=== PATIENT | female | born 1980 | race Caucasian/White ===

== ENCOUNTER 2019-05-22 00:56 | Emergency (ER) | payer MEDICARE, MEDICAID ==
[~2019-05-22] VITALS: Ht 160 cm; Wt 95.0 kg
[~2019-05-22 00:56] MED LIST: AMOX500T2 PO; NO HOME MEDS
[2019-05-22] MEDS ORDERED: ketorolac trometh inj. 60 MG/2 ML VIAL IM ONE (02:25)
[2019-05-22 03:07] LABS: CLARITY,URINE CLEAR (Clear); COLOR,URINE YELLOW (Yellow); GLUCOSE, URINE NEGATIVE (Neg); KETONES,URINE NEGATIVE (Neg); LEUKOCYTE ESTERASE ,URINE NEGATIVE (Neg); NITRITES, URINE NEGATIVE (Neg); OCCULT BLOOD,URINE NEGATIVE (Neg); PH,URINE 5.5 (4.8-8.0); PROTEIN,URINE NEGATIVE (Neg); UROBILINOGEN,URINE 0.2 E.U/dL (0.2-1.0)
[2019-05-22 03:11] LABS: UA COLLECTION TYPE CLN CATCH MIDSTREAM
[2019-05-22] MEDS ORDERED: normal saline 1000ML IV soln IVB ONE (03:35)
[2019-05-22] MEDS ORDERED: CYCL-1 PO (03:48)
[2019-05-22] MEDS ORDERED: NAPR-56 PO (03:48)
[2019-05-22] MEDS ORDERED: HYDR-4383 PO (03:48)
[2019-05-22] MEDS ORDERED: HYDROcodone/acetaminophen 10/325mg tab PO ONE (03:50)
[2019-05-22] MEDS ORDERED: cyclobenzaprine 10mg tablet PO ONE (03:50)
[2019-05-22 04:14] VITALS: BP 115/53
== END 2019-05-22 04:17 | disposition home or self-care (01) ==
LOC: ER 00:56
DX: M51.87 Other intervertebral disc disorders, lumbosacral region (principal); M06.9 Rheumatoid arthritis, unspecified; F41.9 Anxiety disorder, unspecified; F17.200 Nicotine dependence, unspecified, uncomplicated; Z56.0 Unemployment, unspecified; Z79.2 Long term (current) use of antibiotics; Z79.899 Other long term (current) drug therapy
CPT/HCPCS: 72131; 81003; 96372; 99284; J1885

== ENCOUNTER 2021-02-20 08:39 | Emergency (ER) | payer MEDICARE, MEDICAID ==
[~2021-02-20] VITALS: Ht 160 cm; Wt 90.9 kg
[~2021-02-20 08:39] MED LIST changes: +CYCL-1 PO; +HYDR-4383 PO
[2021-02-20 09:15] VITALS: BP 120/83
[2021-02-20] MEDS ORDERED: AMOX-422 PO (11:39)
[2021-02-20] MEDS ORDERED: PRED20TA PO (11:39)
[2021-02-20] MEDS ORDERED: ALBU6.7H9 INH (11:39)
== END 2021-02-20 11:45 | disposition home or self-care (01) ==
LOC: ER 08:40
DX: J20.9 Acute bronchitis, unspecified (principal); Z20.822 Contact with and (suspected) exposure to COVID-19; M19.90 Unspecified osteoarthritis, unspecified site; M06.9 Rheumatoid arthritis, unspecified; F17.200 Nicotine dependence, unspecified, uncomplicated; Z72.89 Other problems related to lifestyle; Z56.0 Unemployment, unspecified
CPT/HCPCS: 71045; 87635; 99284; C9803

== ENCOUNTER 2022-04-16 20:28 | Emergency (ER) | payer MEDICARE, MEDICAID ==
[~2022-04-16] VITALS: Ht 160 cm; Wt 86.4 kg
[~2022-04-16 20:28] MED LIST changes: +ALBU6.7H14 INH
[2022-04-16 20:45] VITALS: BP 136/80
[2022-04-16 20:47] LABS: BASOPHILS # (AUTO) 0.1 X10'3 (0-0.2); BASOPHILS % (AUTO) 0.9 % (0-1); EOSINOPHILS # (AUTO) 0.1 X10'3 (0-0.9); EOSINOPHILS % (AUTO) 1.2 % (0-6); HEMATOCRIT 48.8 % (35.0-45.0); HEMOGLOBIN 15.6 g/dl (12.0-16.0); LYMPHOCYTES # (AUTO) 2.1 X10'3 (1.1-4.8); LYMPHOCYTES % (AUTO) 22.9 % (21-51); MEAN CORPUSCULAR HEMOGLOBIN 28.2 PG (27.0-31.0); MEAN CORPUSCULAR HGB CONC 32.1 g/dL (33.0-36.5); MEAN CORPUSCULAR VOLUME 88.1 FL (78-98); MEAN PLATELET VOLUME 7.5 FL (7.4-10.4); MONOCYTES # (AUTO) 0.6 X10'3 (0-0.9); NEUTROPHILS # (AUTO) 6.3 X10'3 (1.8-7.7); PLATELET COUNT 227 X10'3 (140-440); RED BLOOD COUNT 5.54 X10'6 (4.20-5.60); RED CELL DISTRIBUTION WIDTH 16.6 % (11.5-14.5); WHITE BLOOD COUNT 9.3 X10'3 (4.5-11.0)
[2022-04-16 21:05] LABS: ALANINE AMINOTRANSFERASE 33 U/L (12-78); ALBUMIN 3.5 G/DL (3.4-5.0); ALBUMIN/GLOBULIN RATIO 0.8 (1.1-1.5); ALKALINE PHOSPHATASE 141 IU/L (46-116); ANION GAP 11 (8-16); ASPARTATE AMINO TRANSFERASE 30 U/L (10-37); BILIRUBIN,TOTAL 1.3 MG/DL (0.1-1.0); BLOOD UREA NITROGEN 13 MG/DL (7-18); CALCIUM 8.9 MG/DL (8.5-10.1); CHLORIDE 102 MMOL/L (99-107); CREATININE 1.08 MG/DL (0.40-0.90); GLUCOSE 95 MG/DL (70-104); MAGNESIUM 2.1 MG/DL (1.5-2.4); POTASSIUM 4.1 MMOL/L (3.5-5.1); SODIUM 136 MMOL/L (135-145); TOTAL CARBON DIOXIDE 23.2 MMOL/L (24-32); TOTAL PROTEIN 7.9 G/DL (6.4-8.2); eGFR 56 ML/MIN
== END 2022-04-17 02:49 | disposition left against medical advice (07) ==
LOC: ER 20:29
DX: R06.02 Shortness of breath (principal); Z53.21 Procedure and treatment not carried out due to patient leaving prior to being seen by health care provider
CPT/HCPCS: 36415; 80053; 83735; 83880; 84484; 85025; 93005

== ENCOUNTER 2022-04-19 16:22 | Emergency (ER) | payer MEDICARE, MEDICAID ==
[~2022-04-19] VITALS: Ht 160 cm; Wt 104.5 kg
--- NOTE | 2022-04-19 16:49 | NUR ---
PATIENT REFUSING EKG AT THIS TIME STATING "... I DID ONE TWO NIGHTS AGO".
[2022-04-19 17:29] LABS: BASOPHILS # (AUTO) 0.1 X10'3 (0-0.2); BASOPHILS % (AUTO) 0.9 % (0-1); EOSINOPHILS # (AUTO) 0.1 X10'3 (0-0.9); EOSINOPHILS % (AUTO) 1.6 % (0-6); HEMATOCRIT 45.7 % (35.0-45.0); HEMOGLOBIN 14.7 g/dl (12.0-16.0); LYMPHOCYTES # (AUTO) 1.9 X10'3 (1.1-4.8); LYMPHOCYTES % (AUTO) 20.9 % (21-51); MEAN CORPUSCULAR HEMOGLOBIN 28.3 PG (27.0-31.0); MEAN CORPUSCULAR HGB CONC 32.2 g/dL (33.0-36.5); MEAN PLATELET VOLUME 7.6 FL (7.4-10.4); MONOCYTES # (AUTO) 0.6 X10'3 (0-0.9); MONOCYTES % (AUTO) 6.2 % (2-12); NEUTROPHILS # (AUTO) 6.3 X10'3 (1.8-7.7); NEUTROPHILS % (AUTO) 70.4 % (42-75); PLATELET COUNT 221 X10'3 (140-440); RED BLOOD COUNT 5.19 X10'6 (4.20-5.60); RED CELL DISTRIBUTION WIDTH 16.6 % (11.5-14.5)
[2022-04-19 17:43] LABS: ALANINE AMINOTRANSFERASE 32 U/L (12-78); ALBUMIN 3.2 G/DL (3.4-5.0); ALBUMIN/GLOBULIN RATIO 0.8 (1.1-1.5); ALKALINE PHOSPHATASE 127 IU/L (46-116); ANION GAP 11 (8-16); ASPARTATE AMINO TRANSFERASE 28 U/L (10-37); BLOOD UREA NITROGEN 18 MG/DL (7-18); BUN/CREATININE RATIO 17.1 (6.6-38.0); CHLORIDE 105 MMOL/L (99-107); CREATININE 1.05 MG/DL (0.40-0.90); GLUCOSE 102 MG/DL (70-104); POTASSIUM 4.3 MMOL/L (3.5-5.1); SODIUM 137 MMOL/L (135-145); TOTAL CARBON DIOXIDE 21.3 MMOL/L (24-32); TOTAL PROTEIN 7.1 G/DL (6.4-8.2); eGFR 58 ML/MIN
[2022-04-19] MEDS ORDERED: ipratropium/albuterol 3ml nebule NEB ONE ×2 (18:05→20:15)
[2022-04-19] MEDS ORDERED: furosemide 40mg/4ml inj IV ONE (18:10)
[2022-04-19] MEDS ORDERED: predniSONE 20 mg tablet PO ONE ×2 (18:10→20:11)
[2022-04-19] MEDS ORDERED: iohexol 350MG/ML 100ml bottle IV ONE (18:15)
[2022-04-19] MEDS ORDERED: furosemide 10 MG/1 ML 10ml inj IV ONE (20:04)
[2022-04-19] MEDS ORDERED: POTA-192 PO (20:22)
[2022-04-19] MEDS ORDERED: PRED20TA PO (20:22)
[2022-04-19] MEDS ORDERED: ALBU8HFA PO (20:22)
[2022-04-19] MEDS ORDERED: FURO-150 PO (20:22)
[2022-04-19 20:29] VITALS: BP 127/76
== END 2022-04-19 21:49 | disposition home or self-care (01) ==
LOC: ER 16:23
DX: R06.02 Shortness of breath (principal); R60.0 Localized edema; I50.9 Heart failure, unspecified; F41.9 Anxiety disorder, unspecified; Z79.899 Other long term (current) drug therapy; Z79.2 Long term (current) use of antibiotics; Z79.1 Long term (current) use of non-steroidal anti-inflammatories (NSAID)
CPT/HCPCS: 36415; 71045; 71275; 80053; 83880; 84484; 85025; 94640; 96374; 99285; J1940; J3490; J7512; Q9967; 94760; A4615

== ENCOUNTER 2022-08-22 09:29 | Emergency (ER) | payer MEDICARE, MEDICAID ==
[~2022-08-22] VITALS: Ht 160 cm; Wt 102.6 kg
[~2022-08-22 09:29] MED LIST changes: -ALBU6.7H14 INH; -AMOX500T2 PO; -CYCL-1 PO; +FURO40TA4 PO; -HYDR-4383 PO; +IPRA4AER IH; +METF-1203 PO; +NICO-687 TD; -NO HOME MEDS; +PRED20TA PO
[2022-08-22 09:40] VITALS: BP 140/83
[2022-08-22] MEDS ORDERED: ALBU6.7H14 INH (10:47)
[2022-08-22] MEDS ORDERED: FURO40TA4 PO (10:47)
[2022-08-22] MEDS ORDERED: METF-436 PO (10:47)
[2022-08-22] MEDS ORDERED: IPRA4AER IH (10:47)
[2022-08-22] MEDS ORDERED: POTA10CA45 PO (10:47)
== END 2022-08-22 11:09 | disposition home or self-care (01) ==
LOC: ER 09:30
DX: I50.9 Heart failure, unspecified (principal); E11.9 Type 2 diabetes mellitus without complications; F41.9 Anxiety disorder, unspecified; Z59.00 Homelessness unspecified; Z79.899 Other long term (current) drug therapy; Z79.1 Long term (current) use of non-steroidal anti-inflammatories (NSAID); Z79.2 Long term (current) use of antibiotics
CPT/HCPCS: 99283

== ENCOUNTER 2022-12-28 23:55 | Emergency (ER) | payer MEDICARE, MEDICAID ==
[~2022-12-28 23:55] MED LIST changes: +ALBU6.7H14 INH; +METF-436 PO
== END 2022-12-29 00:33 | disposition left against medical advice (07) ==
LOC: ER 23:56
DX: R06.02 Shortness of breath (principal); Z53.21 Procedure and treatment not carried out due to patient leaving prior to being seen by health care provider

== ENCOUNTER 2023-08-15 07:33 | Emergency (ER) | payer MEDICARE, MEDICAID ==
[~2023-08-15] VITALS: Ht 160 cm; Wt 105.1 kg
[2023-08-15 07:35] VITALS: TEMP 98.3
[2023-08-15] MEDS ORDERED: POTA-366 PO (07:41)
[2023-08-15 08:28] LABS: BASOPHILS # (AUTO) 0.1 X10'3 (0-0.2); BASOPHILS % (AUTO) 1.1 % (0-1); EOSINOPHILS # (AUTO) 0.1 X10'3 (0-0.9); EOSINOPHILS % (AUTO) 1.6 % (0-6); HEMATOCRIT 41.2 % (35.0-45.0); HEMOGLOBIN 13.6 g/dl (12.0-16.0); LYMPHOCYTES # (AUTO) 1.8 X10'3 (1.1-4.8); LYMPHOCYTES % (AUTO) 21.9 % (21-51); MEAN CORPUSCULAR HEMOGLOBIN 28.7 PG (27.0-31.0); MEAN CORPUSCULAR HGB CONC 33.1 g/dL (33.0-36.5); MEAN CORPUSCULAR VOLUME 86.8 FL (78-98); MEAN PLATELET VOLUME 7.8 FL (7.4-10.4); MONOCYTES # (AUTO) 0.5 X10'3 (0-0.9); MONOCYTES % (AUTO) 6.3 % (2-12); NEUTROPHILS # (AUTO) 5.6 X10'3 (1.8-7.7); NEUTROPHILS % (AUTO) 69.1 % (42-75); PLATELET COUNT 190 X10'3 (140-440); RED BLOOD COUNT 4.75 X10'6 (4.20-5.60); RED CELL DISTRIBUTION WIDTH 19.5 % (11.5-14.5); WHITE BLOOD COUNT 8.2 X10'3 (4.5-11.0)
[2023-08-15 08:54] LABS: ALANINE AMINOTRANSFERASE 20 U/L (12-78); ALBUMIN/GLOBULIN RATIO 0.8 (1.1-1.5); ALKALINE PHOSPHATASE 109 IU/L (46-116); ANION GAP 5 (8-16); ASPARTATE AMINO TRANSFERASE 28 U/L (10-37); BILIRUBIN,TOTAL 3.3 MG/DL (0.1-1.0); BLOOD UREA NITROGEN 10 MG/DL (7-18); BUN/CREATININE RATIO 11.9 (10.0-20.0); CALCIUM 8.7 MG/DL (8.5-10.1); CHLORIDE 101 MMOL/L (99-107); CREATININE 0.84 MG/DL (0.40-0.90); FREE T4 (FREE THYROXINE) 1.39 NG/DL (0.73-1.40); GLUCOSE 104 MG/DL (70-104); MAGNESIUM 2.2 MG/DL (1.5-2.4); PRO BRAIN NATRIURETIC PEPTIDE 1039 PG/ML (0-125); SODIUM 135 MMOL/L (135-145); THYROID STIMULATING HORMONE 3.47 ulU/ml (0.34-4.50); eCRCL 74 ML/MIN; eGFR 75 ML/MIN
[2023-08-15 09:06] LABS: BILIRUBIN,URINE SMALL (Neg); CLARITY,URINE SLIGHTLY CLOUDY (Clear); COLOR,URINE YELLOW (Yellow); GLUCOSE, URINE NEGATIVE (Neg); KETONES,URINE NEGATIVE (Neg); LEUKOCYTE ESTERASE ,URINE NEGATIVE (Neg); NITRITES, URINE NEGATIVE (Neg); OCCULT BLOOD,URINE NEGATIVE (Neg); PROTEIN,URINE 30 mg/dl (Neg)
[2023-08-15 09:21] LABS: MUCUS STRANDS MANY /LPF (Neg); SQUAMOUS EPITHELIAL CELL,UR MANY /LPF (FEW); UA COLLECTION TYPE CLN CATCH MIDSTREAM
[2023-08-15 09:23] LABS: BACTERIA,URINE 2+ /HPF (Neg); WBC,URINE 0-4 /HPF (0-4)
[2023-08-15] MEDS ORDERED: potassium chloride 8mEq ER tablet PO STA (09:37)
[2023-08-15] MEDS ORDERED: MAGN296S68 PO (09:37)
[2023-08-15 09:38] VITALS: BP 117/76; PULSE 83; RESP 20; O2SAT 93
[2023-08-15 09:39] LABS: ANISOCYTOSIS 2+
[2023-08-15 09:40] LABS: PLATELET ESTIMATE NORMAL
[2023-08-15 09:42] LABS: POLYCHROMASIA FEW
== END 2023-08-15 09:52 | disposition home or self-care (01) ==
LOC: ER 07:34
DX: K59.00 Constipation, unspecified (principal); R06.02 Shortness of breath; E86.0 Dehydration; M19.90 Unspecified osteoarthritis, unspecified site; I50.9 Heart failure, unspecified; J44.9 Chronic obstructive pulmonary disease, unspecified; Z79.899 Other long term (current) drug therapy; Z98.890 Other specified postprocedural states
CPT/HCPCS: 36415; 71045; 74019; 80053; 81001; 83735; 83880; 84439; 84443; 84484; 85008; 85025; 93005; 99285